=== PATIENT | female | born 1985 | race Caucasian/White ===

== ENCOUNTER 2025-01-06 15:18 | Emergency (ER) | payer MEDICAID, SELFPAY ==
[2025-01-06 15:51] VITALS: BP 121/86; PULSE 89; RESP 16; TEMP 37.3; O2SAT 97; BMI 30.4
--- NOTE | 2025-01-06 16:29 | EDNOTE_ITS ---
ED Chest Pain RME/HPI General Chief Complaint: General Adult/Misc Complain Stated Complaint: low bp (93/63) sent from PCP Time Seen by Provider: 01/06/25 16:13 Arrival date/time: 01/06/25 15:18 This is a 39-year-old female that comes into the emergency room with complaints of of low blood pressure of 93/63. Patient was being seen by primary provider. Patient is asymptomatic. Blood pressure is normal upon arrival. Patient also complaining of a cough. Patient's children currently are sick with a cough and pneumonia. Patient denies any fever or chills. Patient has a history of hypothyroidism and diabetes. Related Data Home Medications ?Medication ?Instructions ?Recorded ?Confirmed levothyroxine 25 mcg tablet 25 mcg PO QDAY 06/07/19 sitagliptin phosphate 100 mg 100 mg PO QDAY 06/07/19 1 09/25/18 tablet (Januvia) Previous Rx's ?Medication ?Instructions ?Recorded diphenhydramine HCl 25 mg tablet 25 mg PO QID PRN brian rgic reaction 07/25/19 (Benadryl Allergy) #30 tabs naproxen 500 mg tablet (Naprosyn) 500 mg PO BID #30 ta bs 07/25/19 ibuprofen 800 mg tablet 800 mg PO Q6H PRN pain #14 t abs 01/06/25 Allergies Allergy/AdvReac Type Severity Reaction Status Date / Time adhesive tape Allergy skin rash Verified 01/06/25 15:24 Course Orders Category Date Time Status Bedside COVID-19 Antigen Test NOW Care 01/06/25 16:25 Active Bedside Influenza A&B Antigen Test NOW Care 01/06/25 16:25 Completed Strep A Rapid Stat Lab 01/06/25 16:31 Completed Acetaminophen Tab [Tylenol ES Tab] Med 01/06/25 16:29 Discontinued 1,000 mg PO X1 ONE Ibuprofen Tab [Motrin Tab] Med 01/06/25 16:29 Discontinued 800 mg PO X1 ONE Vital Signs Vital signs: Vital Signs Temperature 99.1 F 01/06/25 15:51 Pulse Rate 89 01/06/25 15:51 Respiratory Rate 16 01/06/25 15:51 Blood Pressure 121/86 H 01/06/25 15:51 Pulse Oximetry (%) 97 01/06/25 15:51 Oxygen Delivery Method Room Air 01/06/25 15:51 Chest Pain MDM Narrative MDM Narrative:: COVID flu and strep negative. Patient's lungs are clear. Patient's kids are getting over being sick currently with pneumonia. It is likely patient has an upper respiratory illness. Will treat with supportive measures. Patient given some Tylenol and ibuprofen. Medications / Prescriptions Medication administrations:: Medication Administration History Discontinued Medications Acetaminophen (Acetaminophen 500 Mg Tablet) 1,000 mg PO X1 ONE Stop: 01/06/25 16:30 Ibuprofen (Ibuprofen Tab 400 Mg Tablet) 800 mg PO X1 ONE Stop: 01/06/25 16:30 Discharge Plan Plan Patient Disposition: HOME (Self Care) Patient condition on transfer: Stable Prescriptions/Referrals Prescriptions/Med Rec: New ibuprofen 800 mg tablet 800 mg PO Q6H PRN (Reason: pain) Qty: 14 0RF No Action levothyroxine 25 mcg Tablet 25 mcg PO QDAY Januvia 100 mg Tablet 100 mg PO QDAY diphenhydramine HCl [Benadryl Allergy] 25 mg tablet 25 mg PO QID PRN (Reason: allergic reaction) Qty: 30 0RF naproxen [Naprosyn] 500 mg tablet 500 mg PO BID Qty: 30 0RF Referrals: No Primary/Family,Physician [Primary Care Provider] - In 1 week Problem List Clinical Impression: Cough Patient/Caregiver Discharge Instructions Discharge Activity: activity as tolerated Education Materials: ED URI, Viral, No Abx (Adult) Additional Instructions: Follow up with primary provider in 1-2 days. 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
[2025-01-06 17:33] LABS: Strep A Rapid Negative (Negative)
[2025-01-06] MEDS: ACETAMINOPHEN 500 MG TABLET 1000 MG PO (17:47)
== END 2025-01-06 19:39 | disposition home or self-care (01) ==
PROVIDERS: Nurse Practitioner Family; Emergency Provider Emergency Medicine
DX: R05.9 Cough, unspecified (principal)
CPT/HCPCS: 87400; 87651; 87811; 99283; A9270

== ENCOUNTER 2025-07-16 08:34 | Outpatient (AMB) | payer MEDICAID, SELFPAY ==
[2025-07-16 09:08] VITALS: BP 112/72; PULSE 76; RESP 18; TEMP 36.8; O2SAT 98; BMI 32.5
--- NOTE | 2025-07-16 09:08 | PD.GSCLVISIT ---
Vital Signs - [facility] 07/16/25 09:08 Height 1.52 m Height Method Measured Weight 75.523 kg Weight Measurement Method Standing Scale BMI 32.5 BP 112/72 Blood Pressure Source Automatic Cuff Blood Pressure Location Left Upper Arm Position Sitting Respiration 18 Pulse 76 Pulse Source Monitor Temp 98.2 F Temp Source Temporal Artery Scan Pulse Oximetry (%) 98 Oxygen Delivery Method Room Air Med/Allergies Allergies & Medications Allergies adhesive tape Allergy (Verified 07/16/25 09:09) skin rash Medication Reconciliation levothyroxine 25 mcg tablet 25 mcg PO QDAY 06/07/19 [History Confirmed 07/16/25] sitagliptin phosphate 100 mg tablet (Januvia) 100 mg PO QDAY 06/07/19 [History Confirmed 07/16/25] diphenhydramine HCl 25 mg tablet (Benadryl Allergy) 25 mg PO QID PRN allergic reaction #30 tabs 07/25/19 [Rx Confirmed 07/16/25] naproxen 500 mg tablet (Naprosyn) 500 mg PO BID #30 tabs 07/25/19 [Rx Confirmed 07/16/25] ibuprofen 800 mg tablet 800 mg PO Q6H PRN pain #14 tabs 01/06/25 [Rx Confirmed 07/16/25] MA Intake Visit Data Collection New Patient or Established: Established Patient (seen at [facility] within 3 years) Seen by Clinical Staff ONLY (RN/MA): No Reason for Visit:: REFERRAL COLONOSCOPY Pain Present Currently: No Pain 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 PCP or OBGYN visit in last 3 months: Yes Hx Now: No Do You Feel Safe at Home: Yes Authorities Contacted: N/A Smoking Status Smoking Status: Never smoker Immunization / Flu Flu Vaccine in the Last 12 Months: No Flu Vaccine Exclusion Criteria: Refused by Patient Past Medical History Past Medical History NEUROLOGIC: Negative Neurological Disorders or Seizures CARDIAC: Negative Cardiac Disorders or Congestive Heart Failure RESPIRATORY: Negative Chronic Obstructive Pulmonary Disease (COPD) GASTROINTESTINAL: Negative Gastrointestinal Disorders GENITOURINARY: Negative Genitourinary Disorders or Renal Disease REPRODUCTIVE: Positive Previous Pregnancies ENDOCRINE: Positive Endocrine Disorders and Hypothyroidism; Negative Diabetes Mellitus Type 1 or Diabetes Mellitus Type 2 HEMATOLOGIC: Negative Blood Disorders OTHER HISTORY: Positive Chicken Pox; Negative Hospitalization, Autoimmune Disease, Shingles, Falls, Blood Transfusions, Anesthesia Reactions, Chemotherapy, Radiation Therapy or MRSA Family History FAMILY HISTORY: Positive Family Cardiac Disorders, Family Cancer and Family Surgery; Negative Family Psychiatric Problems, Family Respiratory Disorders, Family Gastrointestinal Problems or Family Anesthesia Reaction Surgical History SURGICAL: Positive Cardiac Surgery, Eye Surgery and Section Social History SMOKING STATUS: Smoking status: Never smoker ALCOHOL: Alcohol Intake: Current HOUSING: Housing: House HPI HPI Narrative 40F referred for first colonoscopy due to mother diagnosed with colon CA at age 47. Pt states she underwent cholecystectomy in 2022 and since then has had loose stools alternating with pencil thin stools. She denies any blood in stool, anorexia and unintentional weight loss, reporting that she had a sleeve gastrectomy in 2021 and had steadily lost weight but has since regained some of it. She was on a weight loss medication but stopped this due to the diarrhea PMH: HLD PSHx: Gastric sleeve, cholecystectomy, csection, remote eye surgery Meds: Vitamins, no antiplt or anticoagulation, off weight loss medication Allergies: NKDA Family hx: mother diagnosed with colon CA at age 47, unsure of any other family members with polyps or CA ROS Review of Systems Systems Reviewed: All systems reviewed, normal except as documented Objective/Exam General General Appearance: alert, cooperative and well groomed Resp Respiratory exam: Absent respiratory distress Assessment & Plan Diagnosis / Problem List (1) Encounter for colonoscopy in patient with family history of colon cancer: Status: Acute Assessment & Plan: 40F needing colonoscopy due to mother diagnosed with colon CA at age 47. I explained conscious sedation, prep and benefits/risks including bleeding, perforation requiring emergency surgery as well as the potential for needing to abort prematurely for safety. All questions were answered and pt is agreeable to proceeding Office Procedures GNS Level of Care Nursing/Assessment Patient Status: Established Patient Nursing Assessment/Reassesment: Medication Reconciliation, Update PMH in EMR and Vital Signs Coordination of Care: Complex Care and Chronic Disease 1-5, Education Complex Pt/Fam, Consent,records obtained, informed consent, Results/Orders obtained and Staff clarify orders Established Patient Charge Established Patient Point Assignment: 95 Established Patient Point Charge: EP Level 3 (80-115) Patient Portal Questionaires Social History Living Situation History Housing: House Tobacco History Smoking Status: Never smoker Alcohol History Alcohol Intake: Current Domestic Abuse History Do You Feel Safe at Home: Yes Review of Systems Report any current symptoms Only answer those that you have currently: Past Medical History Past Medical History Have you ever been diagnosed with any of the following: Neurological Problems Seizures: No Cardiology Problems Congestive Heart Failure: No Respiratory Problems Chronic Obstructive Pulmonary Disease (COPD): No Genital/Urinary Problems Renal Disease: No Reproductive Problems Previous Pregnancies: Yes Endocrine Problems Diabetes Mellitus Type 1: No Diabetes Mellitus Type 2: No Hypothyroidism: Yes Other Problems Hospitalization: No Autoimmune Disease: No Shingles: No Falls: No Blood Transfusions: No Anesthesia Reactions: No Chemotherapy: No Radiation Therapy: No MRSA: No Chicken Pox: Yes
== END 2025-07-16 09:33 | disposition home or self-care (01) ==
LOC: HODSRG 08:34
PROVIDERS: PCP Physician Assistant; Referring Provider Physician Assistant; Supervising Provider Surgery; Visit Provider Surgery
DX: Z12.11 Encounter for screening for malignant neoplasm of colon (principal); Z80.0 Family history of malignant neoplasm of digestive organs
CPT/HCPCS: 99213; G0463